=== PATIENT | male | born 1970 | race Hispanic/Latino ===

== ENCOUNTER 2021-01-03 10:06 | Emergency (ER) | payer BC, OTHER ==
[~2021-01-03] VITALS: Ht 180.3 cm; Wt 167.2 kg
[2021-01-03] MEDS ORDERED: LISINOPRIL10 MG PO (10:21)
[2021-01-03] MEDS ORDERED: IBUPROFEN 600 MG TAB PO STA (10:25)
[2021-01-03] MEDS ORDERED: NAPROSYN500 MG PO (12:38)
[2021-01-03] MEDS ORDERED: CYCLOBENZAPRINE5 MG PO (12:38)
== END 2021-01-03 12:52 | disposition home or self-care (01) ==
LOC: FSED 10:25
DX: S00.83XA Contusion of other part of head, initial encounter (principal); S33.5XXA Sprain of ligaments of lumbar spine, initial encounter; V43.52XA Car driver injured in collision with other type car in traffic accident, initial encounter; Y92.488 Other paved roadways as the place of occurrence of the external cause; I10 Essential (primary) hypertension; E66.9 Obesity, unspecified
CPT/HCPCS: 70450; 72100; 72125; 99284